=== PATIENT | female | born 1955 | race Caucasian/White ===

== ENCOUNTER → 2021-07-03 | Outpatient (CLI) | payer MEDICARE ==
--- NOTE | 2021-07-03 15:44 | RAD ---
MG 2D BILAT SCREENING 07/03/2021 11:03 AM INDICATION: Asymptomatic screening mammogram. COMPARISON: None available TECHNIQUE: 2D CC and MLO projections were obtained of each breast. FINDINGS: Breast density: Category A: The breasts are almost entirely fatty. Right breast: There are no suspicious microcalcifications, masses or areas of architectural distortio n. Right chest wall infusion port catheter is partially profiled. Left breast: There is an asymmetry in the medial left breast at posterior depth, approximately 11.9 c m from the nipple. Further evaluation with spot compression left CC view as well as possible ultrasou nd is recommended. IMPRESSION: 1. Incomplete left mammogram. Additional views are recommended. 2. Negative right mammogram. BI-RADS category: 0; Incomplete Recommendations: Recommend additional imaging for which the patient will need to be called back. Electronically signed by: Марина Gonzales MD (07/03/2021 3:41 PM) [id number]
--- NOTE | 2021-07-03 18:04 | RAD ---
DEXA scan 07/03/2021 Clinical History: Postmenopausal female. Risk factors for osteoporosis. Technique: DEXA of the lumbar spine and right hip was performed. FINDINGS: No previous studies are available for comparison. The bone mineral density of the lumbar spine is 1.069 g/cm2 which corresponds with a T-score of -0.9 . This is consistent with borderline osteopenia. The mean bone mineral density of the right hip is 0.755 g/sq cm. This corresponds to a T score of -1. 6. This is consistent with mild osteopenia. By World Congress on Osteoporosis criteria, a T score of 0 to-1 SD is considered to be within normal limits. A T score of -1 to -2.5 SD is considered osteopenia. A T score less than -2.5 SD is conside red osteoporosis Impression: 1. Borderline osteopenia of the lumbar spine. 2. Mild osteopenia of the right hip. Electronically signed by: Terence Hicks MD (07/03/2021 6:01 PM) [id number]
== END ==
LOC: MAMMO 10:22
PROVIDERS: ATTEND Family Medicine
DX: Z12.31 Encounter for screening mammogram for malignant neoplasm of breast (principal); M85.89 Other specified disorders of bone density and structure, multiple sites; Z78.0 Asymptomatic menopausal state
CPT/HCPCS: 77067; 77080

== ENCOUNTER → 2021-08-07 | Outpatient (CLI) | payer MEDICARE ==
--- NOTE | 2021-08-07 14:03 | RAD ---
EXAM: Left breast diagnostic mammogram; left breast sonogram. HISTORY: 66-year-old female presents for evaluation of asymmetry within the left breast demonstrated on a mammogram performed 07/03/2021. TECHNIQUE: Full-field digital and spot compression views of the left breast are obtained. Sonographic imaging of the left breast targeted to sites of mammographic and interbody was also performed. COMPARISON: 07/03/2021 BREAST PARENCHYMAL DENSITY: Level A - Mostly fat. FINDINGS: There is a persistent nodular density with slight irregular margins within the 7:00 positio n of the left breast at mid to posterior depth. There are a few benign calcifications. There is no ar chitectural distortion. Sonogram imaging of the left breast demonstrates a hypoechoic lesion with slight lobulated and indist inct margins and internal echoes at the 7:00 position 10 cm from the nipple measuring 7 mm in maximum dimension. This demonstrated no internal blood flow or posterior shadowing. The imaging appearance f avors a benign fibrocystic lesion or cluster of cysts. This corresponds with the location and size of the finding of concern demonstrated mammographically. No additional lesion is seen. IMPRESSION: 1. 7 mm suspected benign fibrocystic lesion or cluster of cysts at the 7:00 position of the left nicole st 10 cm from the nipple, likely corresponding with the mammographic finding of concern. Given the ab sence of remote prior mammograms to confirm stability, short-term follow-up is recommended to confirm benignity. 2. BI-RADS Category 3: Probably benign finding(s). Short term follow up with a diagnostic left breast mammogram and sonogram in 6 months is recommended. If your mammogram demonstrates that you have dense breast tissue, which could hide abnormalities, and if you have other risk factors for breast cancer that have been identified, you might benefit from s upplemental screening tests that may be suggested by your ordering physician. Dense breast tissue, i n and of itself, is a relatively common condition. This information is not provided to cause undue c oncern, but rather to raise your awareness and to promote discussion with your physician regarding th e presence of other risk factors, in addition to dense breast tissue. A report of your mammography re sults will be sent to you and your physician. You should contact your physician if you have any ques tions or concerns regarding this report. Mammography is a sensitive method for finding small breast cancers, but it does not detect them all a nd is not a substitute for careful clinical examination. A negative mammogram does not negate a clin ically suspicious finding and should not result in delay in biopsying a clinically suspicious abnorma lity. PQRS compliance statement - Patient information was entered into a reminder system with a target due date for the next mammogram. "Our facility is accredited by the [employer] Mammography [employer]." Electronically signed by: Yissel Monroy MD (08/07/2021 2:00 PM) [id number]
== END ==
LOC: MAMMO 13:01
PROVIDERS: ATTEND Family Medicine
DX: R92.2 Inconclusive mammogram (principal); R92.1 Mammographic calcification found on diagnostic imaging of breast
CPT/HCPCS: 76641; 77065

== ENCOUNTER → 2022-02-06 | Outpatient (CLI) | payer MEDICARE ==
--- NOTE | 2022-02-06 14:27 | RAD ---
EXAM: 1. UNILATERAL LEFT DIGITAL DIAGNOSTIC MAMMOGRAPHY. 2. LEFT BREAST ULTRASOUND. HISTORY: Six-month follow-up left breast nodule. TECHNIQUE: Left full field digital images were obtained in CC and MLO projections. Computer-aided det ection was applied. Sonography of the left breast was also performed. COMPARISON: None available. This is interpreted as a baseline study. COMPOSITION: A. The breasts are almost entirely fatty. FINDINGS: The nodule of concern inferomedially on the left is mammographically stable. On today's son ography, it is seen as a cluster of small cysts at the 7:00 position 10 cm from the nipple. Some of t he individual cystic components have increased in size slightly. The overall cluster measures 7 x 7 x 3 mm as compared with 7 x 6 x 3 mm previously. There is no internal perfusion or clearly suspicious sonographic finding. Elsewhere, another small nodule laterally is stable. Scattered calcifications are benign. The parench ymal pattern is stable. BI-RADS CATEGORY 3: Probably Benign. RECOMMENDATION: 1. Bilateral diagnostic mammography to confirm stability of the mammographic nodule medially on the l eft when the patient returns for her yearly examination in 6 months. Electronically signed by: Arturo Maddox MD (02/06/2022 2:24 PM) [id number]
== END ==
LOC: MAMMO 12:54
PROVIDERS: ATTEND Family Medicine
DX: N60.02 Solitary cyst of left breast (principal)
CPT/HCPCS: 76642; 77065; G0279; 77061